=== PATIENT | male | born 1985 | race Caucasian/White ===

== ENCOUNTER 2024-03-04 02:59 | Emergency (ER) | payer BC, OTHER, SELFPAY ==
[2024-03-04] MEDS ORDERED: Metoclopramide HCl 10 MG (2 mL) VIAL ONE (03:19)
[2024-03-04] MEDS ORDERED: diphenhydrAMINE 50 MG/ML VIAL ONE (03:27)
== END 2024-03-04 05:26 | disposition home or self-care (01) ==
LOC: BURERS 02:59
DX: R11.15 Cyclical vomiting syndrome unrelated to migraine (principal)
CPT/HCPCS: 96374; 96375; J1200; J2765